=== PATIENT | female | born 1950 | race Caucasian/White ===

== ENCOUNTER → 2016-04-25 | Outpatient (CLI) | payer OTHER ==
[~2016-04-25] MED LIST: ARMO250T5 PO; ATOR-22 PO; ATV1 PO; CALC-51 PO; CALCCHW57 PO; CHOL1TAB46 PO; CLB/200 PO; CYAN500T13 PO; DARI15TA PO; DLD2 PO; GABA-113 PO; IPRA0.06 NAE; LEVO25TA5 PO; LOSA100T2 PO; MULTTAB58 PO; OMEP40CA PO; OMEP40CA41 PO; POLY335019 PO; RIZA1TAB7 PO; RXC5 PO; TRAM-10 PO; VERA1TAB53 PO; ZOLP10TA PO
--- NOTE | 2016-04-25 11:51 | DIAGNOSTIC IMAGING REPORT ---
FLEXION AND EXTENSION LATERAL RADIOGRAPHS OF THE LUMBAR SPINE CLINICAL HISTORY: Lumbago. COMPARISON: Lumbar spine MRI April 01, 2016. FINDINGS: Grade II anterolisthesis of L4 and L5 is noted. There is 9 mm of anterolisthesis with extension and 11 mm of anterolisthesis with flexion. Moderate disc space narrowing is noted at this level. There is anterolisthesis of L3 on L4 which does not change. There is slight retrolisthesis of L2 on L3 which does not change. IMPRESSION: Grade II anterolisthesis of L4 and L5 which slightly increases with flexion which suggests mild instability. Electronically signed by: Mehran Quintero M.D. 04/25/2016 11:49 AM Dictated Date/Time: 04/25/2016 11:46 AM
== END | disposition home or self-care (01) ==
LOC: C.RADBC 10:21
PROVIDERS: ATTEND Anesthesiology
DX: M54.5 Low back pain (principal); M43.16 Spondylolisthesis, lumbar region

== ENCOUNTER 2016-07-01 11:30 | Inpatient (IN) | payer OTHER ==
--- NOTE | 2016-06-05 13:33 | PAT Medication Instructions ---
Service Date Jun 05, 2016. Current Home Medication List Armodafinil (Nuvigil), 0.5 TAB PO QAM PRN for PRN Atorvastatin (Lipitor), 20 MG PO QPM Celecoxib (CeleBREX), 200 MG PO QAM Cholecalciferol (Vitamin D3), 1 TAB PO NOON Cyanocobalamin (Vitamin B12 500MCG), 2,500 MCG PO NOON Darifenacin (Enablex), 15 MG PO DAILY PRN for URINARY FREQUENCY Gabapentin (Neurontin), 300 MG PO TID Ipratropium Elsah (Nasal) (Ipratropium Elsah), 2-3 SPRAY GELACIO DIRECTED PRN for PRN Levothyroxine Sodium (Levothyroxine Sodium), 1 TAB PO QAM Losartan Potassium & Hydrochlo (Hyzaar), 1 TAB PO QPM Multiple Vitamin (Multivitamin), 1 TAB PO NOON Omeprazole (Prilosec), 40 MG PO QAM Polyethylene Glycol 3350 (Miralax), 17 GM PO PRN Rizatriptan Benzoate (Rizatriptan Benzoate), 10 MG PO UD PRN for RN Tramadol (Ultram), 50-100 MG PO Q6H PRN for RN Verapamil Hcl (Verapamil Hcl Er), 1 TAB PO BID Zolpidem Tartrate (Ambien), 10 MG PO HS PRN for Sleep [Calcium], 1,200 UNITS PO NOON Medication Instructions For Your Scheduled Surgery Rizatriptan Benzoate (Rizatriptan Benzoate), 10 MG PO UD PRN for RN (only takes with migraines- rarely) Celecoxib (CeleBREX), 200 MG PO QAM (hold 7-10 days prior to surgery per surgeon instructions) - Hold the following medications evening prior to surgery: Losartan Potassium & Hydrochlo (Hyzaar), 1 TAB PO QPM - Hold the following medications the morning of surgery: Calcium 1,200 UNITS PO NOON Polyethylene Glycol 3350 (Miralax), 17 GM PO PRN Multiple Vitamin (Multivitamin), 1 TAB PO NOON Darifenacin (Enablex), 15 MG PO DAILY PRN for URINARY FREQUENCY Cholecalciferol (Vitamin D3), 1 TAB PO NOON Cyanocobalamin (Vitamin B12 500MCG), 2,500 MCG PO NOON Armodafinil (Nuvigil), 0.5 TAB PO QAM PRN for PRN - Take the following medications the morning of surgery with a sip of water: Tramadol (Ultram), 50-100 MG PO Q6H PRN for RN (can take up to four hours prior to surgery if needed) Verapamil Hcl (Verapamil Hcl Er), 1 TAB PO BID Omeprazole (Prilosec), 40 MG PO QAM Levothyroxine Sodium (Levothyroxine Sodium), 1 TAB PO QAM Ipratropium Elsah (Nasal) (Ipratropium Elsah), 2-3 SPRAY GELACIO DIRECTED PRN for PRN (if needed) Gabapentin (Neurontin), 300 MG PO TID (if needed) - Take the following medications as scheduled the night before surgery: Zolpidem Tartrate (Ambien), 10 MG PO HS PRN for Sleep Tramadol (Ultram), 50-100 MG PO Q6H PRN for RN Verapamil Hcl (Verapamil Hcl Er), 1 TAB PO BID Ipratropium Elsah (Nasal) (Ipratropium Elsah), 2-3 SPRAY GELACIO DIRECTED PRN for PRN Gabapentin (Neurontin), 300 MG PO TID Atorvastatin (Lipitor), 20 MG PO QPM If you have any questions please call us at [phone] or [phone] ( [place]) or [phone]
--- NOTE | 2016-06-05 14:04 | DIAGNOSTIC IMAGING REPORT ---
CHEST PREADMISSION(PA/LAT) CLINICAL HISTORY: PAT preoperative evaluation COMPARISON STUDY: No previous studies for comparison. FINDINGS: The bones soft tissues and hemidiaphragms are normal. The cardiomediastinal silhouette is normal. The lungs are clear. The pulmonary vasculature is normal. IMPRESSION: Negative chest. Electronically signed by: Hari Li M.D. 06/05/2016 2:03 PM Dictated Date/Time: 06/05/2016 2:03 PM
[2016-06-05 14:17] LABS: BASO % 0.3 %; BASO ABS # 0.02 K/uL (0-0.2); COMPLETE YES; EOS % 3.5 %; HEMATOCRIT 41.5 % (37-47); IG% 0.2 %; LYMPH % 39.1 %; LYMPH ABS # 2.32 K/uL (1.2-3.4); MEAN CELL VOLUME 88.7 fL (80-100); MEAN CORPUSCULAR HEMOGLOBIN 30.3 pg (25-34); MEAN CORPUSCULAR HGB CONC 34.2 g/dl (32-36); MEAN PLATELET VOLUME 10.6 fL (7.4-10.4); MONO % 7.3 %; NEUT % 49.6 %; PLATELET COUNT 240 K/uL (130-400); RED BLOOD COUNT 4.68 M/uL (4.2-5.4); WHITE BLOOD COUNT 5.93 K/uL (4.8-10.8)
[2016-06-05 14:21] LABS: URINE APPEARANCE CLEAR (CLEAR); URINE BILIRUBIN NEG (NEG); URINE COLOR DK YELLOW; URINE NITRITE NEG (NEG); URINE PH 5.5 (4.5-7.5); URINE SPECIFIC GRAVITY 1.029 (1.000-1.030); UROBILINOGEN NEG (NEG)
[2016-06-05 14:23] LABS: MANUAL MICROSCOPIC REQUIRED? NO; REVIEW REQ? NO
[2016-06-05 14:46] LABS: BUN/CREATININE RATIO 23.8 (10-20); CALCIUM 8.7 mg/dl (8.5-10.1); CREATININE 0.78 mg/dl (0.60-1.20); POTASSIUM 4.1 mmol/L (3.5-5.1)
--- NOTE | 2016-06-27 09:06 | HISTORY & PHYSICAL EXAMINATION ---
DATE OF ADMISSION: 07/01/2016 HISTORY OF PRESENT ILLNESS: The patient presents to our office with complaint of back and right leg pain. It has been ongoing for 6+ months. It is worsening. She was evaluated by pain management but they felt she was not a candidate for injections due to the degree of her stenosis. She has trialed physical therapy for 4 months without any technician terminal and repeater relief. She feels her right leg is weaker than the left. He denies paresthesias or numbness. Denies bowel or bladder changes. PAST MEDICAL HISTORY: Significant for arthritis, ovarian and cervical cancer in 1988, GERD, mild heart murmur, hiatal hernia, hypertension, high cholesterol, migraines, insomnia, hypothyroidism, spinal stenosis, shortness of breath. PAST SURGICAL HISTORY: Significant for total hysterectomy for ovarian cancer in 1988, endoscopic balloon dilation for Schatzki's rings in December 2015. ALLERGIES: INCLUDE COMPAZINE. MEDICATIONS CURRENTLY: Include levothyroxine 25 mcg a day, omeprazole 40 mg a day, verapamil HCL ER 180 mg twice a day, Celebrex 200 mg a day, atorvastatin 20 mg a day, losartan/hydrochlorothiazide 50/12.5 one daily, armodafinil 250 mg half a tablet as needed, gabapentin 300 mg t.i.d., Ambien 5 mg as needed, rizatriptan benzoate 10 mg as needed, tramadol as needed, vitamin D, calcium, vitamin B12 and multivitamin. FAMILY HISTORY: Significant for arthritis, cancer, hypertension, and high cholesterol. SOCIAL HISTORY: The patient is . He drinks wine or mixed drink twice a month. Alcohol use he denies. Drug use he denies. REVIEW OF SYSTEMS: Significant for difficulty walking, dizziness, poor coordination, muscle weakness, constipation, leg swelling, abdominal pain, frequent urination. PHYSICAL EXAMINATION: VITAL SIGNS: The patient is 5 foot 3, 172 pounds. HEAD, EYES, EARS, NOSE, AND THROAT: Speech appropriate. CARDIOPULMONARY: No gross abnormalities. ABDOMEN: Soft and nondistended. GENITOURINARY: Deferred. NEUROLOGIC: Cranial nerves II-XII grossly intact. MUSCULOSKELETAL: She moves slowly around the room. She has positive tension sign on the right. Negative on the left. Strength is intact bilateral lower extremities. No evidence of ankle clonus and equivocal Babinski. ASSESSMENT: Grade 1 spondylolisthesis of L4-L5, severe spinal stenosis L4-L5. PLAN: At this point in time, we have reviewed surgical intervention which would require lumbar decompression with instrumented fusion of L4-L5. Risks, benefits, pros, cons, and alternatives were outlined in detail. She would like to proceed with the above-mentioned surgical planning.
[~2016-07-01] VITALS: Ht 160 cm; Wt 79.2 kg
[2016-07-01] VITALS (7 sets, daily range): BP systolic 129–148; BP diastolic 74–90; PULSE 67–91; TEMP 35.5–36.6; O2SAT 95–99; Ht 160 cm; Wt 79.2 kg
--- NOTE | 2016-07-01 07:22 | History & Physical Bridge Note ---
H&P Re-Evaluation Bridge Note: I have examined the patient, reviewed the History & Physical and in the interval since the performance of the History & Physical I have noted the following changes of clinical significance: No changes noted
[~2016-07-01 11:30] MED LIST changes: -ARMO250T5 PO; -ATOR-22 PO; +ATROPINE SULFATE 0.1 MG/ML 5ML SYR IV PRN; -ATV1 PO; -CALCCHW57 PO; -CHOL1TAB46 PO; -CYAN500T13 PO; -DARI15TA PO; -DLD2 PO; +EpHEDrine SULFATE INJ 50 MG/ML AMP IV PRN; +FENTANYL CITRATE INJ 50 MCG/1 ML 2 ML VIAL IV PRN; -GABA-113 PO; +HYDROmorphone INJ 1 MG/ML SYR IV PRN; -IPRA0.06 NAE; +LACTATED RINGER'S 1000ML 1,000 ML IV SCH; -LEVO25TA5 PO; -LOSA100T2 PO; -MULTTAB58 PO; -OMEP40CA41 PO; +ONDANSETRON INJ 2 MG/ML 2 ML VIAL IV PRN; -POLY335019 PO; -RIZA1TAB7 PO; -RXC5 PO; -TRAM-10 PO; -VERA1TAB53 PO; -ZOLP10TA PO
[2016-07-01] MEDS ORDERED: CEFAZOLIN IV 2,000 MG/60 ML D5W IV ONE (13:46)
[2016-07-01] MEDS ORDERED: GLYCOPYRROLATE INJ 0.2 MG/ML VIAL ONE ×2 (13:51→15:43)
[2016-07-01] MEDS ORDERED: DEXAMETHASONE SOD INJ 4 MG/ML VIAL ONE (13:51)
[2016-07-01] MEDS ORDERED: ROCURONIUM BROMIDE 10 MG/ML 5 ML VIAL ONE ×2 (13:51→15:18)
[2016-07-01] MEDS ORDERED: ONDANSETRON INJ 2 MG/ML 2 ML VIAL ONE (13:51)
[2016-07-01] MEDS ORDERED: NEOSTIGMINE METHYLSULFATE 1 MG/ML 10ML VIAL ONE (13:51)
[2016-07-01] MEDS ORDERED: PROPOFOL IV EMULSION 10 MG/ML 20 ML VIAL IV ONE ×2 (13:51→15:18)
[2016-07-01] MEDS ORDERED: LIDOCAINE HCL 2% 2 ML VIAL (20MG/ML) ONE (13:51)
[2016-07-01] MEDS ORDERED: FENTANYL CITRATE INJ 50 MCG/1 ML 2 ML VIAL ONE ×2 (13:51→16:09)
[2016-07-01] MEDS ORDERED: MIDAZOLAM HCL 1 MG/ML 2ML VIAL ONE (13:51)
[2016-07-01] MEDS ORDERED: SODIUM CHLORIDE 0.9% PF 50 ML VIAL ONE (13:57)
[2016-07-01] MEDS ORDERED: BUPIVACAINE/EPINEPHRINE 0.5% MPF 1:200,000 30 ML VIAL ONE (13:57)
[2016-07-01] MEDS ORDERED: BACITRACIN 50000 UNIT VIAL ONE (13:58)
[2016-07-01] MEDS ORDERED: PHENYLEPHRINE HCL INJ 10 MG/ML VIAL ONE (15:03)
[2016-07-01] MEDS ORDERED: FLOSEAL HEMOSTATIC MATRIX 10ML TOP ONE (15:47)
[2016-07-01] MEDS ORDERED: SODIUM CHLORIDE 0.9% 1000ML 1,000 ML IV SCH (15:48)
--- NOTE | 2016-07-01 15:48 | [facility] Post Operative Brief Note ---
Immediate Operative Summary Operative Date Jul 01, 2016. Pre-Operative Diagnosis Grade 1 spondylolisthesis of L4-L5, severe spinal stenosis L4-L5 Post-Operative Diagnosis same as preop Procedure(s) Performed L4-L5 Decompression, posterior instrumentation, posterolaterl fusion, application of interbody cage, use of bone morphogenetic protein and Anu allograft Surgeon Dr. Wright Accounting Clerk Surgeon(s) Dixie Carson PA-C Estimated Blood Loss 100 Findings stenosis/spondy Specimens none
[2016-07-01] MEDS ORDERED: KETOROLAC TROMETHAMINE 30 MG/ML VIAL ONE (15:54)
--- NOTE | 2016-07-01 15:58 | DIAGNOSTIC IMAGING REPORT ---
LUMBAR SPINE, INTRAOPERATIVE FLUOROSCOPY HISTORY: Lumbar spine decompression and fusion. FLUOROSCOPY TIME: 9 seconds. FINDINGS: Intraoperative fluoroscopy was provided for the lumbar spine. 2 fluoroscopic spot images were obtained. Posterior decompression fusion from L3 through L5 with pedicle screws and rods. The hardware appears intact. IMPRESSION: Fluoroscopy provided for a L3-L5 posterior decompression and fusion. Electronically signed by: Dejon Lobo M.D. 07/01/2016 3:57 PM Dictated Date/Time: 07/01/2016 3:56 PM
[2016-07-01] MEDS ORDERED: FENTANYL CITRATE INJ 50 MCG/1 ML 2 ML VIAL IV PRN (16:00)
[2016-07-01] MEDS ORDERED: SOD PHOSPHATE/SOD BIPHOSPHATE ENEMA 132 ML BTL PR PRN (16:00)
[2016-07-01] MEDS ORDERED: ACETAMINOPHEN IV 100 ML IV PRN (16:00)
[2016-07-01] MEDS ORDERED: METOCLOPRAMIDE HCL INJ 5 MG/ML 2 ML VIAL IV PRN (16:00)
[2016-07-01] MEDS ORDERED: ALUMINUM/MAGNESIUM SUSP 30 ML UDC PO PRN (16:00)
[2016-07-01] MEDS ORDERED: FAMOTIDINE 20 MG TAB PO PRN (16:00)
[2016-07-01] MEDS ORDERED: BISACODYL 10 MG SUPP PR PRN (16:00)
[2016-07-01] MEDS ORDERED: LORAZEPAM INJ 0.5 MG in SYRINGE 0.75 ML IV PRN (16:00)
[2016-07-01] MEDS ORDERED: DO NOT ADMINISTER PNEUMOCOCCAL VACCINE PRN ×2 (16:00)
[2016-07-01] MEDS ORDERED: PROMETHAZINE HCL INJ 6.25 MG in SODIUM CHLORIDE 0.9% 50ML 50 ML IV PRN (16:00)
[2016-07-01] MEDS ORDERED: LORAZEPAM 0.5 MG TAB PO PRN (16:00)
[2016-07-01] MEDS ORDERED: hydrOXYzine HCL 25 MG TAB PO PRN (16:00)
[2016-07-01] MEDS ORDERED: ONDANSETRON INJ 2 MG/ML 2 ML VIAL IV PRN ×2 (16:00)
[2016-07-01] MEDS ORDERED: NALOXONE HCL 0.4 MG/1 ML VIAL/CARP IV PRN ×2 (16:00)
[2016-07-01] MEDS ORDERED: ATROPINE SULFATE 0.1 MG/ML 5ML SYR IV PRN (16:00)
[2016-07-01] MEDS ORDERED: EpHEDrine SULFATE INJ 50 MG/ML AMP IV PRN (16:00)
[2016-07-01] MEDS ORDERED: MAGNESIUM HYDROXIDE SUSP 30 ML UDC PO PRN (16:00)
[2016-07-01] MEDS ORDERED: DO NOT ADMINISTER FLU VACCINE PRN ×3 (16:00)
[2016-07-01] MEDS ORDERED: HYDROmorphone INJ 1 MG/ML SYR IV PRN (16:00)
[2016-07-01] MEDS ORDERED: RIZATRIPTAN BENZOATE 10 MG TAB PO PRN (16:00)
[2016-07-01] MEDS ORDERED: ACETAMINOPHEN 500 MG TAB PO PRN (16:00)
[2016-07-01] MEDS ORDERED: HYDROmorphone HCL 0.5MG/ML 50 ML CASSETTE ONE (16:11)
--- NOTE | 2016-07-01 16:16 | OPERATIVE REPORT ---
DATE OF OPERATION: 07/01/2016 PREOPERATIVE DIAGNOSES: Spinal stenosis and spondylolisthesis. POSTOPERATIVE DIAGNOSES: Same. PROCEDURES PERFORMED: 1. Lumbar decompression, medial facetectomy, and foraminotomy L3-L4 and L4-L5. 2. Posterior spinal fusion, L3-L4 and L4-L5. 3. Placement of posterior segmental instrumentation using Orthos rods and screws, L3-L4 and L4-L5. 4. Interbody fusion, L4-L5. 5. Placement of PEEK cage 12 x 22 mm at L4-L5. 6. Placement of locally harvested morcellized autograft in the posterior gutters. 7. Placement of Infuse collagen sponge combined with Mastergraft in the posterior lateral gutters and Anu bone grafting in the interbody space. SURGEON: Dr. Troy Wright. ORGAN PIPE FINISHER: Dixie Carson PA-C. Due to the complex nature of the procedure, the entire surgery was performed with the assistant hairstylist of Dixie Carson PA-C. The animal assistant, under direct supervision, was involved in the actual performance of all aspects of the surgical procedure including hemostasis, tissue retraction and incision, instrument management, patient positioning, and wound closure. ANESTHESIA: General. DISPOSITION: The patient awakened and taken to PACU in stable condition. HISTORY OF PATIENT'S PROBLEMS: This is a 66-year-old female that presents with the above-mentioned diagnoses. After failing an extensive course of nonoperative care, she elected to undergo the above-mentioned procedure. Risks, benefits, pros, cons, and alternatives were outlined in detail preoperatively. DESCRIPTION OF PROCEDURE: The patient was met with preoperatively, the case discussed and all questions were addressed. At that point, the patient was taken back to operative suite and after undergoing successful general intubation by the department of anesthesia, she was placed in prone position on the Vivek table atop Micheal frame. All bony prominences were well padded and the eyes were inspected to ensure there was no external pressure placed upon them. At this point, lumbar spine was prepped and draped in normal sterile fashion. Sharp dissection with the assistance of Bovie cautery was performed down to and exposing the lamina and transverse processes of L3, L4, and L5 bilaterally. From a caudal to cephalad fashion, complete laminectomy of L4 and L3 performed addressing severe lateral recess foraminal disease. Pedicle screws were then placed in L3, L4, and L5 bilaterally with the assistance of fluoroscopy and the appropriately sized tiffanie provisionally placed. Through a transforaminal approach on the right, a complete diskectomy of L4-L5 was performed. Endplates were curetted to subcortical bleeding bone and a 12 x 22 mm PEEK cage filled with Anu bone grafting tapped into position. The rods were then compressed, locked into final position bilaterally and transverse processes of L3, L4, and L5 burred to subcortical bleeding bone. Infuse collagen sponge combined with Mastergraft and locally harvested morselized autograft was placed in the posterior gutters. A 7 flat GISEL drain inserted and also a crosslink locked into position. The incision was closed with 1-0 Vicryl in the fascia, 2-0 Vicryl subcutaneously, and 4-0 Monocryl for final skin closure. Steri-Strips and sterile dressing placed. The patient was awakened and taken to PACU in stable condition. I attest to the content of the Intraoperative Record and any orders documented therein. Any exceptio ns are noted below.
[2016-07-01] MEDS: HYDROmorphone HCL 0.5MG/ML 50 ML CASSETTE IV PRN ×2 (16:52→18:58)
[2016-07-01] MEDS: LACTATED RINGER'S 1000ML 1,000 ML IV SCH ×2 (17:14→22:24)
--- NOTE | 2016-07-01 17:55 | Anesthesiology Progress Note ---
Anesthesia Post Op Note Date & Time Jul 01, 2016 at 17:54 Vital Signs Pain Intensity: 8.0 Vital Signs Past 12 Hours Date Time Temp Pulse Resp B/P Pulse Ox O2 Delivery O2 Flow Rate FiO2 07/01/16 17:20 35.5 67 16 143/81 99 Nasal Cannula 2.0 07/01/16 16:50 97 Nasal Cannula 2.0 07/01/16 16:50 97 Nasal Cannula 2.0 07/01/16 16:50 36.4 91 18 138/74 97 Nasal Cannula 2.0 07/01/16 16:45 36.5 88 14 111/78 98 Nasal Cannula 3 07/01/16 16:35 82 14 115/62 100 Nasal Cannula 3 07/01/16 16:25 83 14 127/65 100 Mask 5 07/01/16 16:15 95 18 158/75 100 Mask 10 07/01/16 16:10 36.4 90 18 126/68 100 Mask 10 07/01/16 11:54 36.5 86 18 143/80 95 Room Air Notes Mental Status: alert / awake / arousable, participated in evaluation Pt Amnestic to Procedure: Yes Nausea / Vomiting: adequately controlled Pain: adequately controlled Airway Patency, RR, SpO2: stable & adequate BP & HR: stable & adequate Hydration State: stable & adequate Anesthetic Complications: no major complications apparent
[2016-07-01] MEDS: CEFAZOLIN IV 2,000 MG in DEXTROSE 5% 50ML 50 ML IV SCH (20:36)
[2016-07-01] MEDS: DEXAMETHASONE INJ 6 MG in SYRINGE 0 ML IV SCH (20:36)
[2016-07-01] MEDS: PROMETHAZINE HCL INJ 12.5 MG in SODIUM CHLORIDE 0.9% 50ML 50 ML IV PRN ×2 (21:00→21:52)
[2016-07-01] MEDS: ATORVASTATIN 20 MG TAB PO SCH (22:24)
[2016-07-01] MEDS: GABAPENTIN 300 MG CAP PO SCH (22:25)
[2016-07-01] MEDS: LOSARTAN/HCTZ 50-12.5 EA TAB PO SCH (22:25)
[2016-07-01] MEDS: DOCUSATE SODIUM/SENNA 50/8.6MG TAB PO SCH (22:26)
[2016-07-01] MEDS: VERAPAMIL HCL 180 MG TABCR PO SCH (22:26)
[2016-07-02 03:25] VITALS: BP 114/70; PULSE 89; TEMP 36.4; O2SAT 96
[2016-07-02] MEDS: DEXAMETHASONE INJ 6 MG in SYRINGE 0 ML IV SCH ×2 (03:51→12:00)
[2016-07-02] MEDS: CEFAZOLIN IV 2,000 MG in DEXTROSE 5% 50ML 50 ML IV SCH (03:51)
[2016-07-02 05:05] VITALS: O2SAT 98
[2016-07-02] MEDS ORDERED: HYDROmorphone INJ 0.5 MG/0.5 ML SYR IV PRN (06:00)
[2016-07-02] MEDS ORDERED: DC PCA SCH (06:00)
[2016-07-02] MEDS ORDERED: HYDROmorphone INJ 1 MG/ML SYR IV PRN (06:00)
[2016-07-02 06:15] LABS: COMPLETE YES; HEMATOCRIT 38.5 % (37-47); IG% 0.2 %; LYMPH % 11.3 %; LYMPH ABS # 0.96 K/uL (1.2-3.4); MEAN CELL VOLUME 90.2 fL (80-100); MEAN CORPUSCULAR HGB CONC 33.2 g/dl (32-36); MEAN PLATELET VOLUME 10.4 fL (7.4-10.4); MONO % 1.2 %; NEUT % 87.3 %; PLATELET COUNT 210 K/uL (130-400); RED BLOOD COUNT 4.27 M/uL (4.2-5.4); WHITE BLOOD COUNT 8.47 K/uL (4.8-10.8)
[2016-07-02] MEDS: LEVOTHYROXINE 25 MCG TAB PO SCH (06:15)
[2016-07-02] MEDS: LACTATED RINGER'S 1000ML 1,000 ML IV SCH (06:15)
[2016-07-02 06:50] LABS: BUN/CREATININE RATIO 22.1 (10-20); CALCIUM 8.5 mg/dl (8.5-10.1); CREATININE 0.75 mg/dl (0.60-1.20)
[2016-07-02 06:57] VITALS: BP 111/66; PULSE 80; TEMP 36.5; O2SAT 90
[2016-07-02] MEDS: OXYCODONE HCL IR 5 MG TAB (IMMEDIATE RELEASE) PO PRN ×3 (07:35→20:38)
--- NOTE | 2016-07-02 07:49 | Anesthesiology Progress Note ---
Anesthesia Post Op Note Date & Time Jul 02, 2016 at 07:48 Vital Signs Pain Intensity: 7.0 Vital Signs Past 12 Hours Date Time Temp Pulse Resp B/P Pulse Ox O2 Delivery O2 Flow Rate FiO2 07/02/16 06:57 36.5 80 20 111/66 90 Room Air 07/02/16 05:05 98 Room Air 07/02/16 03:25 36.4 89 16 114/70 96 Nasal Cannula 2.0 07/01/16 23:10 36.6 90 16 130/83 99 Nasal Cannula 2.0 07/01/16 19:59 36.6 90 18 148/76 96 Room Air Notes Mental Status: alert / awake / arousable, participated in evaluation Pt Amnestic to Procedure: Yes Nausea / Vomiting: adequately controlled Pain: adequately controlled, see Notes Airway Patency, RR, SpO2: stable & adequate BP & HR: stable & adequate Hydration State: stable & adequate Anesthetic Complications: no major complications apparent just asked for po analgesic, nurse bringing it.
[2016-07-02] MEDS: VERAPAMIL HCL 180 MG TABCR PO SCH ×2 (09:02→20:37)
[2016-07-02] MEDS: PANTOprazole SOD 40 MG TAB PO SCH (09:02)
[2016-07-02] MEDS: GABAPENTIN 300 MG CAP PO SCH ×3 (09:02→20:36)
[2016-07-02] MEDS: TRAMADOL HCL 50 MG TAB PO PRN (09:05)
[2016-07-02] MEDS ORDERED: NURSING VERBAL MED ORDER ONE (11:15)
[2016-07-02 11:59] VITALS: BP 110/70; PULSE 92; TEMP 36.9; O2SAT 94
[2016-07-02] MEDS ORDERED: RXC5 PO (12:36)
--- NOTE | 2016-07-02 12:37 | Discharge Instructions ---
Discharge Instructions Date of Service Jul 02, 2016. Admission Reason for Admission: Lumbar Spinal Stenosis Discharge Discharge Diagnosis / Problem: stenosis Discharge Goals Goal(s): Improve function Activity Recommendations Activity Limitations: per Instructions/Follow-up section . Instructions / Follow-Up Instructions / Follow-Up ACTIVITY RECOMMENDATIONS: SELF CARE INSTRUCTIONS AFTER THORACIC/LUMBAR FUSIONS 1. You may walk to your tolerance. It is good exercise for your legs and back. Expect some back and intermittent leg aches and pains. 2. You may perform "counter-top" level activities (make a sandwich, denise with a project, etc.). 3. No bending or lifting of more than 10 pounds or back twisting of any nature (roll like a log when turning in bed). 4. You may ride in a car for 20-30 minutes at a time. No driving until after your first visit with your doctor. 5. Frequent changes of position and restricting sitting to 30 minutes at a time will help limit the amount of back spasms and stiffness you may experience. 6. You may discontinue the use of ambulatory aids (cane, crutches, etc.) once your strength and confidence allow. 7. You may business job titles the shower and let water strike your incision when you arrive home at least once daily. Do not take a tub bath, sit in a hot tub or go into a swimming pool until after your first recheck in the office. SPECIAL CARE INSTRUCTIONS: VERY IMPORTANT TO READ AND REVIEW A. Your surgical incision has been closed with a cosmetic suture under the skin that will dissolve in about 6 weeks. In 14 days, you can use a pair of clean scissors and cut the suture that is left outside of the skin at the ends of your incision. 1. The small skin tapes can be removed 7 days after surgery if they have not fallen off by that point. 2. You may keep the wound open to air as much as possible to promote healing after post-op day number 5 unless told otherwise by your doctor. 3. If you think the wound looks like it is becoming infected (redness or worsening drainage) and/or you are experiencing fever, chill or worsening back pain and muscle spasms, contact the office so that we may evaluate you as soon as possible. B. Complications are uncommon, but please contact us if you have any signs or symptoms of: 1. wound infection (fever higher than 102.5 degrees F, redness, separation of wound, drainage, or increasing pain from the incision) 2. blood clots in legs (pain, swelling, redness and warmth in legs) 3. urinary tract infection (fever higher than 102.5 degrees F, burning upon urination or increased frequency of urination) 4. nerve problems (inability to walk on your toes or heels, numbness, loss of bowel or bladder control) 5. any other symptoms that concern you C. Please call the office at if you have any concerns or questions about your operation or recovery. D. No smoking! Smoking drastically decreases the chance of a solid fusion. E. Do not take any anti-inflammatory medications (Indocin, Advil, Motrin, Aspirin, Naprosyn, etc.) as these may inhibit the chance of a solid fusion. Tylenol is okay to take for pain. MANAGING PAIN AFTER SPINAL SURGERY 1. Narcotic medication is intended for short-term use and will be provided for surgical pain. Surgical pain usually lasts for a period of 4-6 weeks. Narcotic medication includes Percocet, Vicodin, Darvocet, Tylenol #3 or Lortab. 2. Longer-term pain is more appropriately treated with non-narcotic medication such as Tylenol ES. 3. Muscle spasm is not appropriately treated with narcotics. Muscle relaxers such as Soma, Flexeril or Skelaxin can be used along with Tylenol ES. 4. Remember that we all live with some "aches and pains". This is not unusual or uncommon after an injury or as we get older. a. Back pain is expected and may include muscle spasms for 4 to 6 weeks after surgery. The pain should gradually improve. If the pain worsens for no apparent reason, please contact the office. b. Intermittent leg pain may also be experienced and should not be concerned about unless it worsens for no apparent reason. If so, please contact the office. 5. We will provide appropriate medication within the normal guidelines of their prescribed use. We will also be very cautious and aware of potential abuse and extended duration of patients' medication needs. a. Pain medications are for your comfort and to assist with sleep and rest so that the tissue can heal. They are not provided in order to return to normal activity and should not be used through the day. To do so or worsening pain at night can result from ongoing tissue damage and development of tolerance to the prescribed medicine. 6. Please allow 2-3 days to process refills. Prescriptions will not be mailed but must be picked up at the office. FOLLOW UP VISIT: Keep your scheduled follow-up appointment. Any questions, please call the office at . Current Hospital Diet Patient's current hospital diet: Regular Diet Discharge Diet Recommended Diet: Regular Diet Procedures Procedures Performed: L3-L5 Decompression, posterior instrumentation, posterolateral fusion; L4-L5 application of interbody cage; use of bone morphogenetic protein and Anu allograft Pending Studies Studies pending at discharge: no Laboratory Results Lipid Panel Test 04/04/16 09:17 Range/Units Triglycerides Level 101 0-150 mg/dl Cholesterol Level 186 0-200 mg/dl HDL Cholesterol 89 mg/dl Cholesterol/HDL Ratio 2.1 LDL Cholesterol, Calculated 77 mg/dl Medical Emergencies . Who to Call and When: Medical Emergencies: If at any time you feel your situation is an emergency, please call 911 immediately. . Non-Emergent Contact Non-Emergency issues call your: Primary Care Provider . "Provider Documentation" section prepared by Troy Wright. VTE Core Measure Inpt VTE Proph given/why not?: Juancho Valdez, SCD's
--- NOTE | 2016-07-02 12:46 | PROGRESS NOTE ---
DATE: 07/02/2016 DATE: 07/02/2016. SUBJECTIVE: Postop day 1. Back pain controlled. Leg pain improved. Vital signs stable. T-max 36.9. GISEL drained 70 mL. Hematocrit this a.m. is 38.5. OBJECTIVE: On exam, patient is in chair at bedside. Has good strength to testing, appears comfortable. ASSESSMENT: Status post lumbar decompression and fusion. PLAN: At this time, will continue physical therapy, advance her bowel regimen and anticipate home .
[2016-07-02 15:17] VITALS: BP 119/71; PULSE 84; TEMP 36.8; O2SAT 93
[2016-07-02] MEDS: ATORVASTATIN 20 MG TAB PO SCH (20:36)
[2016-07-02] MEDS: DOCUSATE SODIUM/SENNA 50/8.6MG TAB PO SCH (20:36)
[2016-07-02] MEDS: LOSARTAN/HCTZ 50-12.5 EA TAB PO SCH (20:36)
[2016-07-02] MEDS: ZOLPIDEM TARTRATE 10 MG TAB PO PRN (22:51)
[2016-07-02 23:05] VITALS: BP 132/79; PULSE 86; TEMP 36.8; O2SAT 94
[2016-07-03] MEDS: LEVOTHYROXINE 25 MCG TAB PO SCH (05:47)
[2016-07-03] MEDS: POLYETHYLENE (MIRALAX) 17 GM PACK PO SCH ×3 (05:48→18:00)
[2016-07-03] MEDS: OXYCODONE HCL IR 5 MG TAB (IMMEDIATE RELEASE) PO PRN ×3 (05:48→19:22)
[2016-07-03 07:09] VITALS: BP 116/73; PULSE 80; TEMP 36.8; O2SAT 95
[2016-07-03] MEDS: PANTOprazole SOD 40 MG TAB PO SCH (09:26)
[2016-07-03] MEDS: GABAPENTIN 300 MG CAP PO SCH ×3 (09:26→21:44)
[2016-07-03] MEDS: VERAPAMIL HCL 180 MG TABCR PO SCH ×2 (09:26→21:42)
--- NOTE | 2016-07-03 12:49 | PROGRESS NOTE ---
DATE: 07/03/2016 Postop day #2. Back pain controlled. Leg pain improved. Vital signs stable. T-max 36.8. GISEL drained 35 mL today. No bowel movement as of yet. Hematocrit stable. OBJECTIVE: The patient is in chair at bedside. Has good strength to testing, appears comfortable. ASSESSMENT: Status post lumbar decompression and fusion. PLAN: At this time, will maintain GISEL drain today. Continue with her bowel regimen. Anticipate home tomorrow.
[2016-07-03 15:14] VITALS: BP 109/69; PULSE 81; TEMP 36.6; O2SAT 96
[2016-07-03] MEDS: TRAMADOL HCL 50 MG TAB PO PRN ×2 (15:28→21:54)
[2016-07-03] MEDS: DOCUSATE SODIUM/SENNA 50/8.6MG TAB PO SCH (21:00)
[2016-07-03 21:43] VITALS: BP 136/87; PULSE 90
[2016-07-03] MEDS: LOSARTAN/HCTZ 50-12.5 EA TAB PO SCH (21:43)
[2016-07-03] MEDS: ATORVASTATIN 20 MG TAB PO SCH (21:44)
[2016-07-03 22:50] VITALS: BP 145/83; PULSE 84; TEMP 36.6; O2SAT 97
[2016-07-03] MEDS ORDERED: NURSING DECISION MEDICATION ORDER SCH (23:45)
[2016-07-04] MEDS: ZOLPIDEM TARTRATE 10 MG TAB PO PRN (00:25)
[2016-07-04] MEDS: OXYCODONE HCL IR 5 MG TAB (IMMEDIATE RELEASE) PO PRN ×3 (00:26→09:39)
[2016-07-04] MEDS: LEVOTHYROXINE 25 MCG TAB PO SCH (05:39)
[2016-07-04 07:20] VITALS: BP 112/67; PULSE 89; TEMP 37; O2SAT 94
[2016-07-04] MEDS: VERAPAMIL HCL 180 MG TABCR PO SCH (08:41)
[2016-07-04] MEDS: GABAPENTIN 300 MG CAP PO SCH (08:41)
[2016-07-04] MEDS: PANTOprazole SOD 40 MG TAB PO SCH (08:42)
[2016-07-04] MEDS: TRAMADOL HCL 50 MG TAB PO PRN (08:45)
[2016-07-04 09:55] VITALS: BP 112/67; PULSE 89; TEMP 37; O2SAT 94
--- NOTE | 2016-07-04 13:46 | DISCHARGE SUMMARY ---
PRINCIPAL DIAGNOSIS: Spinal stenosis. HOSPITAL COURSE: On July 01, patient underwent lumbar decompression and fusion, tolerated this well and was taken to the orthopedic floor postoperatively. Postop day #1, she was up and ambulatory, progressed to postop day #2. On postop day #3, GISEL drain decreased appropriately, pain controlled. Subsequently discharged home. Discharge orders and instructions found on the chart for further review.
[2016-07-05] MEDS ORDERED: ARMO250T5 PO (09:27)
[2016-07-05] MEDS ORDERED: LEVO25TA5 PO (09:27)
[2016-07-05] MEDS ORDERED: DARI15TA PO (09:27)
[2016-07-05] MEDS ORDERED: ATOR-22 PO (09:27)
[2016-07-05] MEDS ORDERED: MULTTAB58 PO (09:27)
[2016-07-05] MEDS ORDERED: IPRA0.06 NAE (09:27)
[2016-07-05] MEDS ORDERED: LOSA100T2 PO (09:27)
[2016-07-05] MEDS ORDERED: CHOL1TAB46 PO (09:28)
[2016-07-05] MEDS ORDERED: VERA1TAB53 PO (09:28)
[2016-07-05] MEDS ORDERED: ZOLP10TA PO (09:28)
[2016-07-05] MEDS ORDERED: CYAN500T13 PO (12:47)
[2016-07-05] MEDS ORDERED: TRAM-10 PO (12:47)
[2016-07-05] MEDS ORDERED: GABA-113 PO (12:47)
[2016-07-05] MEDS ORDERED: RIZA1TAB7 PO (12:47)
[2016-07-05] MEDS ORDERED: POLY335019 PO (13:06)
[2016-07-05] MEDS ORDERED: CALCCHW57 PO (22:39)
[2016-07-05] MEDS ORDERED: OMEP40CA41 PO (22:39)
== END 2016-07-04 11:53 | disposition home health service (06) | DRG 460 ==
LOC: ENRESERVDT → ENRESERVTM → C.ACU 11:30 → C.3E 11:50
PROVIDERS: ADMIT Orthopaedic Surgery Orthopaedic Surgery of the Spine; ATTEND Orthopaedic Surgery Orthopaedic Surgery of the Spine
PROC: 0SG1071 Fusion of 2 or more Lumbar Vertebral Joints with Autologous Tissue Substitute, Posterior Approach, Posterior Column, Open Approach (ICD-10-PCS; principal; 2016-07-01 13:15)
PROC: 3E0V0GB Introduction of Recombinant Bone Morphogenetic Protein into Bones, Open Approach (ICD-10-PCS; principal; 2016-07-01 13:15)
PROC: 0ST20ZZ Resection of Lumbar Vertebral Disc, Open Approach (ICD-10-PCS; principal; 2016-07-01 13:15)
PROC: 0SG00AJ Fusion of Lumbar Vertebral Joint with Interbody Fusion Device, Posterior Approach, Anterior Column, Open Approach (ICD-10-PCS; principal; 2016-07-01 13:15)
DX: M48.06 Spinal stenosis, lumbar region (principal); K21.9 Gastro-esophageal reflux disease without esophagitis; E78.00 Pure hypercholesterolemia, unspecified; I10 Essential (primary) hypertension; E03.9 Hypothyroidism, unspecified; M43.16 Spondylolisthesis, lumbar region

== ENCOUNTER 2016-07-05 21:27 | Observation (INO) | payer OTHER ==
[~2016-07-05] VITALS: Ht 160 cm; Wt 79.2 kg
[~2016-07-05 21:27] MED LIST changes: +ARMO250T5 PO; +ATOR-22 PO; -ATROPINE SULFATE 0.1 MG/ML 5ML SYR IV PRN; +CHOL1TAB46 PO; -CLB/200 PO; +CYAN500T13 PO; +DARI15TA PO; -EpHEDrine SULFATE INJ 50 MG/ML AMP IV PRN; -FENTANYL CITRATE INJ 50 MCG/1 ML 2 ML VIAL IV PRN; +GABA-113 PO; -HYDROmorphone INJ 1 MG/ML SYR IV PRN; +IPRA0.06 NAE; -LACTATED RINGER'S 1000ML 1,000 ML IV SCH; +LEVO25TA5 PO; +LOSA100T2 PO; +MULTTAB58 PO; -ONDANSETRON INJ 2 MG/ML 2 ML VIAL IV PRN; +POLY335019 PO; +RIZA1TAB7 PO; +RXC5 PO; +TRAM-10 PO; +VERA1TAB53 PO; +ZOLP10TA PO
[2016-07-05] MEDS ORDERED: CALCCHW57 PO (22:39)
[2016-07-05] MEDS ORDERED: OMEP40CA41 PO (22:39)
[2016-07-05] MEDS ORDERED: ONDANSETRON 8 MG/54 ML D5W IV STA (22:59)
[2016-07-05] MEDS ORDERED: HYDROmorphone INJ 1 MG/ML SYR IV PRN (23:00)
[2016-07-05 23:23] LABS: BASO % 0.1 %; BASO ABS # 0.01 K/uL (0-0.2); COMPLETE YES; EOS % 0.1 %; HEMATOCRIT 33.7 % (37-47); IG% 0.3 %; LYMPH % 12.3 %; LYMPH ABS # 1.77 K/uL (1.2-3.4); MEAN CELL VOLUME 90.8 fL (80-100); MEAN CORPUSCULAR HEMOGLOBIN 30.7 pg (25-34); MEAN CORPUSCULAR HGB CONC 33.8 g/dl (32-36); NEUT % 77.2 %; PLATELET COUNT 229 K/uL (130-400); RED BLOOD COUNT 3.71 M/uL (4.2-5.4); WHITE BLOOD COUNT 14.36 K/uL (4.8-10.8)
[2016-07-05 23:40] LABS: CALCIUM 8.5 mg/dl (8.5-10.1); CREATININE 0.87 mg/dl (0.60-1.20)
[2016-07-06 00:21] LABS: URINE APPEARANCE CLEAR (CLEAR); URINE BILIRUBIN NEG (NEG); URINE COLOR YELLOW; URINE NITRITE NEG (NEG); URINE SPECIFIC GRAVITY 1.014 (1.000-1.030); UROBILINOGEN NEG (NEG)
[2016-07-06 00:22] LABS: MANUAL MICROSCOPIC REQUIRED? NO; REVIEW REQ? NO
[2016-07-06] MEDS ORDERED: SODIUM CHLORIDE 0.9% 1000ML 1,000 ML IV STA ×2 (00:41)
[2016-07-06] MEDS ORDERED: KETOROLAC TROMETHAMINE 30 MG/ML VIAL IV STA (00:41)
[2016-07-06] MEDS ORDERED: SODIUM CHLORIDE 0.9% 1000ML 1,000 ML IV SCH (01:00)
[2016-07-06] MEDS ORDERED: HYDROmorphone INJ 1 MG/ML SYR IV PRN (01:00)
[2016-07-06] MEDS ORDERED: OXYCODONE HCL IR 5 MG TAB (IMMEDIATE RELEASE) PO PRN (01:00)
[2016-07-06] MEDS ORDERED: ONDANSETRON INJ 2 MG/ML 2 ML VIAL IV PRN (01:00)
[2016-07-06] MEDS ORDERED: NURSING VERBAL MED ORDER ONE ×3 (01:15→22:15)
[2016-07-06 02:00] VITALS: BP 98/57; PULSE 86; TEMP 36.8; O2SAT 97; Ht 160 cm; Wt 79.2 kg
[2016-07-06 02:15] VITALS: BP 98/57; PULSE 86; TEMP 36.8; O2SAT 93
[2016-07-06 02:22] VITALS: O2SAT 96
[2016-07-06] MEDS ORDERED: LORAZEPAM INJ 1 MG in SYRINGE 0.5 ML IV PRN (02:45)
--- NOTE | 2016-07-06 03:00 | EMERGENCY ROOM VISIT NOTE ---
History First contact with patient: 22:40 Chief Complaint: BACK PAIN Stated Complaint: BACK & LEFT LEG PAIN - CANT URINATE History of Present Illness The patient is a 66 year old female who presents to the Emergency Room with complaints of left leg pain and back pain. She had lumbar fusion, 07/[address] Wright and was discharged on the . The pain is a 9/10 The patient also notes the following associated symptoms, nausea, urinary retention, left leg numbness. This started today and is worsening. The patient has found no relieving factors. Pt denies LOC, headache, fevers, chills, diaphoresis, visual changes, neck pain, chest pain, breathing difficulties, vomiting, abdominal pain, melena, hematochezia, weakness, lymphadenopathy, rash, or other complaints. Review of Systems See HPI for pertinent positives and negatives. A total of ten systems were reviewed and were otherwise negative. Past Medical/Surgical History Medical Problems: (1) Lumbar stenosis with neurogenic claudication Social History Smoking Status: Never Smoker Current/Historical Medications Scheduled Atorvastatin (Lipitor), 20 MG PO QPM Calcium Carbonate-Vitamin D W/ (Calcium 1200), 1,200 MG PO DAILY Cholecalciferol (Vitamin D3), 1 TAB PO NOON Cyanocobalamin (Vitamin B12 500MCG), 2,500 MCG PO NOON Gabapentin (Neurontin), 300 MG PO TID Levothyroxine Sodium (Levothyroxine Sodium), 1 TAB PO QAM Losartan Potassium & Hydrochlo (Hyzaar), 1 TAB PO QPM Multiple Vitamin (Multivitamin), 1 TAB PO NOON Omeprazole (Prilosec), 40 MG PO DAILY Polyethylene Glycol 3350 (Miralax), 17 GM PO PRN Verapamil Hcl (Verapamil Hcl Er), 1 TAB PO BID Scheduled PRN Armodafinil (Nuvigil), 0.5 TAB PO QAM PRN for PRN Darifenacin (Enablex), 15 MG PO DAILY PRN for URINARY FREQUENCY Ipratropium [place] (Nasal) (Ipratropium [place]), 2-3 SPRAY GELACIO DIRECTED PRN for PRN Oxycodone HCl (Oxycodone HCl), 5-10 MG PO Q4H PRN for Moderate - severe pain Rizatriptan Benzoate (Rizatriptan Benzoate), 10 MG PO UD PRN for RN Tramadol (Ultram), 50-100 MG PO Q6H PRN for RN Zolpidem Tartrate (Ambien), 10 MG PO HS PRN for Sleep Allergies Coded Allergies: Prochlorperazine (Verified Allergy, Intermediate, EMOTIONAL RX, 07/01/16) "OUT OF BODY EXPERIENCE, STRANGE FEELING" Aromatic Oils (Unverified Allergy, Unknown, SNEEZING HEADACHES, 07/01/16) Physical Exam Vital Signs Date Time Temp Pulse Resp B/P Pulse Ox O2 Delivery O2 Flow Rate FiO2 07/05/16 23:36 68 07/05/16 23:33 93 Nasal Cannula 3.0 07/05/16 23:33 82 Room Air 07/05/16 23:33 69 16 90/38 95 Nasal Cannula 3.0 07/05/16 21:35 36.8 78 18 93/57 98 Room Air Physical Exam GENERAL: Awake, alert, uncomfortable-appearing, in no distress HENT: Normocephalic, atraumatic. Oropharynx unremarkable. EYES: Normal conjunctiva. Sclera non-icteric. NECK: Supple. No nuchal rigidity. FROM. No JVD. RESPIRATORY: Clear to auscultation. CARDIAC: Regular rate, normal rhythm. Extremities warm and well perfused. Pulses equal. ABDOMEN: Soft, non-distended. No tenderness to palpation. No rebound or guarding. No masses. RECTAL: Deferred. MUSCULOSKELETAL: Chest examination reveals no tenderness. The back is symmetrical on inspection without obvious abnormality. Incision CDI. There is no CVA tenderness to palpation. No joint edema. LOWER EXTREMITIES: Calves are equal size bilaterally and non-tender. No edema. No discoloration. NEURO: Normal sensorium. No sensory or motor deficits noted except for subjective left leg tingling. no saddle anesthesia. reflexes symmetric. SKIN: No rash or jaundice noted. Medical Decision & Procedures Laboratory Results 07/05/16 23:14 Red Blood Count 3.71, Mean Corpuscular Volume 90.8, Mean Corpuscular Hemoglobin 30.7, Mean Corpuscular Hemoglobin Concent 33.8, Mean Platelet Volume 10.0, Neutrophils (%) (Auto) 77.2, Lymphocytes (%) (Auto) 12.3, Monocytes (%) (Auto) 10.0, Eosinophils (%) (Auto) 0.1, Basophils (%) (Auto) 0.1, Neutrophils # (Auto ) 11.08, Lymphocytes # (Auto) 1.77, Monocytes # (Auto) 1.44, Eosinophils # (Auto ) 0.01, Basophils # (Auto) 0.01 07/05/16 23:14 Test 07/05/16 23:14 07/06/16 00:00 White Blood Count 14.36 K/uL (4.8-10.8) Red Blood Count 3.71 M/uL (4.2-5.4) Hemoglobin 11.4 g/dL (12.0-16.0) Hematocrit 33.7 % (37-47) Mean Corpuscular Volume 90.8 fL (80-100) Mean Corpuscular Hemoglobin 30.7 pg (25-34) Mean Corpuscular Hemoglobin Concent 33.8 g/dl (32-36) Platelet Count 229 K/uL (130-400) Mean Platelet Volume 10.0 fL (7.4-10.4) Neutrophils (%) (Auto) 77.2 % Lymphocytes (%) (Auto) 12.3 % Monocytes (%) (Auto) 10.0 % Eosinophils (%) (Auto) 0.1 % Basophils (%) (Auto) 0.1 % Neutrophils # (Auto) 11.08 K/uL (1.4-6.5) Lymphocytes # (Auto) 1.77 K/uL (1.2-3.4) Monocytes # (Auto) 1.44 K/uL (0.11-0.59) Eosinophils # (Auto) 0.01 K/uL (0-0.5) Basophils # (Auto) 0.01 K/uL (0-0.2) RDW Standard Deviation 44.1 fL (36.4-46.3) RDW Coefficient of Variation 13.2 % (11.5-14.5) Immature Granulocyte % (Auto) 0.3 % Immature Granulocyte # (Auto) 0.05 K/uL (0.00-0.02) Anion Gap 4.0 mmol/L (3-11) Est Creatinine Clear Calc Drug Dose 63.3 ml/min Estimated GFR () 81.0 Estimated GFR (Non- 69.9 BUN/Creatinine Ratio 16.0 (10-20) Calcium Level 8.5 mg/dl (8.5-10.1) Total Bilirubin 0.8 mg/dl (0.2-1) Direct Bilirubin 0.2 mg/dl (0-0.2) Aspartate Amino Transf (AST/SGOT) 27 U/L (15-37) Alanine Aminotransferase (ALT/SGPT) 24 U/L (12-78) Alkaline Phosphatase 103 U/L (45-117) Total Protein 6.6 gm/dl (6.4-8.2) Albumin 3.0 gm/dl (3.4-5.0) Lipase 61 U/L (73-393) Urine Color YELLOW Urine Appearance CLEAR (CLEAR) Urine pH 7.0 (4.5-7.5) Urine Specific [place] 1.014 (1.000-1.030) Urine Protein NEG (NEG) Urine Glucose (UA) NEG (NEG) Urine Ketones TRACE (NEG) Urine Occult Blood NEG (NEG) Urine Nitrite NEG (NEG) Urine Bilirubin NEG (NEG) Urine Urobilinogen NEG (NEG) Urine Leukocyte Esterase NEG (NEG) Medications Administered Medications (Trade) Dose Ordered Sig/Tyson Route Start Time Stop Time Status Last Admin Dose Admin Ondansetron HCl (Zofran 8mg Iv) 8 mg NOW STAT IV 07/05/16 22:59 07/05/16 23:01 DC 07/05/16 23:23 8 MG Hydromorphone HCl (Dilaudid Inj) 1 mg Q15M PRN IV 07/05/16 23:00 07/06/16 02:28 DC 07/05/16 23:23 1 MG Ketorolac Tromethamine 10 mg 10 mg NOW STAT IV 07/06/16 00:41 07/06/16 00:42 DC 07/06/16 01:10 10 MG Sodium Chloride (Nss 1000ml) 1,000 ml @ 999 mls/hr Q1H1M STAT IV 07/06/16 00:41 07/06/16 01:41 DC 07/06/16 00:54 999 MLS/HR Medical Decision Triage Nursing notes reviewed. The patient's presentation and history were concerning for post-operative back pain. Etiologies such as post-op pain, bleeding, lumbago, sciatica, cauda equina, epidural abscess, osteomyelitis, fracture, aortic disease, metastatic disease, infection, renal colic, gastrointestinal, as well as others were entertained. Patient was evaluated. She had pain and some subjective tingling in the left leg. She was given Dilaudid. She had required some supplemental oxygen as she was very relaxed after this. Her blood pressure was mildly low and she was given normal saline. On reassessment she was doing better. The patient had no signs of wound infection on examination. She did have a slight leukocytosis. Urinalysis was unremarkable. The patient was having some difficulty urinating and this specimen was obtained by a straight cath. She was doing much better. A Joel was not placed initially. Nursing was notified if she cannot urinate Joel catheter would be necessary. She had no saddle anesthesia present. I did consult with her spine surgeon, Dr. Wright. He felt the patient would be best served by having her stay in the hospital. This was relayed to the patient and she was in agreement. The chart was completed utilizing [employer] Speech voice recognition software. Grammatical errors, random word insertions, pronoun errors, and incomplete sentences are an occasional consequence of this system due to software limitations, ambient noise, and hardware issues. Any formal questions or concerns about the content, text, or information contained within the body of this dictation should be directly addressed to the physician for clarification. Impression Primary Impression: Postoperative back pain Departure Information Dispostion Being Evaluated By Surgeon Referrals No Doctor, Assigned (PCP) Patient Instructions My [facility] [address]
[2016-07-06] MEDS: HYDROmorphone INJ 2 MG/ML SYR/VIAL IV PRN ×2 (03:07→07:09)
[2016-07-06] MEDS: SODIUM CHLORIDE 0.9% 1000ML 1,000 ML IV SCH ×3 (03:08→22:11)
[2016-07-06] MEDS ORDERED: IV FLUIDS COMPLETED PRN ×2 (04:00→13:45)
[2016-07-06] MEDS: DEXAMETHASONE INJ 8 MG in SYRINGE 0 ML IV SCH ×3 (04:02→20:55)
[2016-07-06] MEDS ORDERED: DEXAMETHASONE INJ 8 MG in SYRINGE 0 ML IV SCH (06:00)
[2016-07-06 07:33] VITALS: BP 119/78; PULSE 80; TEMP 36.8; O2SAT 97
[2016-07-06] MEDS: ONDANSETRON INJ 2 MG/ML 2 ML VIAL IV PRN (08:11)
[2016-07-06] MEDS: LORAZEPAM 1 MG TAB PO PRN (08:33)
[2016-07-06] MEDS ORDERED: RIZATRIPTAN BENZOATE 10 MG TAB PO PRN (10:15)
[2016-07-06] MEDS ORDERED: ACETAMINOPHEN 325 MG TAB PO PRN (10:15)
--- NOTE | 2016-07-06 10:48 | HISTORY & PHYSICAL EXAMINATION ---
DATE OF ADMISSION: 07/06/2016 CHIEF COMPLAINT: Back and left leg pain. HISTORY OF PRESENT ILLNESS: This is a 66-year-old female well known to me status post lumbar decompression and fusion on Friday. She had been discharged home a few days ago, done quite well, but had a decline in status over the past 24 hours including increasing back and left buttock and posterior thigh pain. She denies any precipitating trauma, fall or event. She denies any fevers or chills. Denies any loss of bowel or bladder function or any perianal numbness. PAST MEDICAL HISTORY: Significant for ovarian and cervical cancer, GERD, hypertension, hiatal hernia, hypercholesterolemia, hypothyroidism. SURGICAL HISTORY: Includes hysterectomy and above-mentioned lumbar decompression and fusion. ALLERGIES: SHE HAS ALLERGIES TO COMPAZINE. SOCIAL HISTORY: She is , lives alone. Has occasional alcoholic beverage on a rare basis. PHYSICAL EXAMINATION: VITAL SIGNS: Stable. Hematocrit 33.7. EXTREMITIES: She has excellent strength to testing bilateral lower extremities, plantar flexion, dorsiflexion and quadriceps. Sensory is symmetric and intact. Negative log roll. Incision is clean, dry and intact. No erythema or drainage. She does have tenderness to palpation of the left sciatic notch. ASSESSMENT: Status post lumbar decompression and fusion. PLAN: At this time, we will give her 24 hours of rest with IV Decadron and pain medications. We will obtain x-rays of lumbar spine today, assess her instrumentation. We will assess her on Friday. Pending her progress, we may initiate a course of physical therapy. If she does fail to improve over the next 48-72 hours, we may have to consider further imaging. CHRISTOFER
[2016-07-06] MEDS: HYDROmorphone INJ 1 MG/ML SYR IV PRN ×3 (11:37→20:56)
[2016-07-06] MEDS: GABAPENTIN 300 MG CAP PO SCH ×2 (13:10→21:08)
[2016-07-06] MEDS: TRAMADOL HCL 50 MG TAB PO PRN ×2 (13:14→23:58)
--- NOTE | 2016-07-06 13:31 | DIAGNOSTIC IMAGING REPORT ---
LUMBAR SPINE 5 VIEWS CLINICAL HISTORY: Low back pain. Recent surgery. FINDINGS: Five views of the lumbar spine are compared to study dated 04/25/2016. The skeletal structures are osteopenic. There is no radiographic evidence of fracture or malalignment. There is evidence of discectomy at L4-L5 with laminectomy and posterior fusion with interpositioned bone graft from L3-L5. Interpedicular screws are present at all levels. The orthopedic hardware appears intact. Vertebral body height is maintained throughout the lumbar spine. There is 5 mm of anterolisthesis at L4-L5. Alignment is otherwise preserved. Small anterior osteophytes are seen throughout. The transverse processes appear intact. Mild degenerative disc space narrowing is seen throughout the lumbar spine. The bony pelvis is intact as imaged. Mild sclerotic change is noted in the sacroiliac joints. There is a nonobstructed abdominal bowel gas pattern noting moderate colonic fecal retention. Phleboliths are noted in the pelvis. There is mild atherosclerotic calcification of the abdominal aorta. IMPRESSION: 1. No acute bony abnormality is seen involving the lumbosacral spine. 2. There are postoperative changes from L3-L5 spinal fusion, new from 04/25/2016. The orthopedic hardware appears intact. 3. Osteopenia and spondylotic change as above. Dictated: 07/06/2016 11:19 AM Transcribed: 07/06/2016 1:31 PM Ernestina Electronically signed by: Tung Ballesteros M.D. 07/06/2016 1:35 PM Dictated Date/Time: 07/06/2016 11:19 AM
[2016-07-06] MEDS: OXYCODONE HCL IR 5 MG TAB (IMMEDIATE RELEASE) PO PRN ×2 (17:27→22:12)
[2016-07-06 21:00] VITALS: BP 139/80
[2016-07-06] MEDS ORDERED: POLYETHYLENE (MIRALAX) 17 GM PACK PO SCH (21:00)
[2016-07-06] MEDS: DOCUSATE SODIUM 100 MG CAP PO SCH (21:04)
[2016-07-06] MEDS: ATORVASTATIN 20 MG TAB PO SCH (21:04)
[2016-07-06] MEDS: VERAPAMIL HCL 180 MG TABCR PO SCH (21:07)
[2016-07-06 23:13] VITALS: BP 128/77; PULSE 99; TEMP 37; O2SAT 96
[2016-07-07] MEDS: OXYCODONE HCL IR 5 MG TAB (IMMEDIATE RELEASE) PO PRN ×5 (03:18→22:31)
[2016-07-07] MEDS: DEXAMETHASONE INJ 8 MG in SYRINGE 0 ML IV SCH ×3 (03:26→21:13)
[2016-07-07] MEDS: LEVOTHYROXINE 25 MCG TAB PO SCH (05:36)
[2016-07-07 07:00] VITALS: BP 113/65; PULSE 76; TEMP 36.8; O2SAT 95
[2016-07-07] MEDS: SODIUM CHLORIDE 0.9% 1000ML 1,000 ML IV SCH ×2 (07:38→18:27)
[2016-07-07] MEDS: VERAPAMIL HCL 180 MG TABCR PO SCH ×2 (08:46→21:18)
[2016-07-07] MEDS: DOCUSATE SODIUM 100 MG CAP PO SCH ×2 (08:46→21:19)
[2016-07-07] MEDS: GABAPENTIN 300 MG CAP PO SCH ×3 (08:47→21:19)
[2016-07-07] MEDS: HYDROmorphone INJ 1 MG/ML SYR IV PRN (09:37)
--- NOTE | 2016-07-07 11:36 | PROGRESS NOTE ---
DATE: 07/07/2016 Today, she is markedly improved. Leg symptoms diminished substantially. Vital signs stable. T-max 36.8. Bowels working well, urinating without difficulty. PHYSICAL EXAMINATION: She has excellent strength to testing. Does appear much more comfortable. ASSESSMENT: Status post lumbar decompression and fusion. PLAN: At this time, we will begin increasing her activity and hopefully ambulating the halls today. Reassess her tomorrow. Of note, her x-rays are normal. No evidence of migration of the hardware.
[2016-07-07 15:45] VITALS: BP 149/81; PULSE 85; TEMP 36.5; O2SAT 96
[2016-07-07] MEDS: ONDANSETRON INJ 2 MG/ML 2 ML VIAL IV PRN (19:14)
[2016-07-07 21:11] VITALS: BP 163/69; PULSE 84
[2016-07-07] MEDS: ATORVASTATIN 20 MG TAB PO SCH (21:19)
[2016-07-07 22:34] VITALS: BP 161/88
[2016-07-07 23:28] VITALS: BP 148/79; PULSE 75; TEMP 36.9; O2SAT 95
[2016-07-08] MEDS: ZOLPIDEM TARTRATE 10 MG TAB PO PRN (00:07)
[2016-07-08] MEDS: SODIUM CHLORIDE 0.9% 1000ML 1,000 ML IV SCH ×2 (04:24→14:31)
[2016-07-08] MEDS: DEXAMETHASONE INJ 8 MG in SYRINGE 0 ML IV SCH ×3 (04:25→20:39)
[2016-07-08] MEDS: LEVOTHYROXINE 25 MCG TAB PO SCH (06:12)
[2016-07-08] MEDS: HYDROmorphone INJ 1 MG/ML SYR IV PRN (07:17)
[2016-07-08 07:54] VITALS: BP 148/78; PULSE 70; TEMP 36.3; O2SAT 95
[2016-07-08] MEDS: VERAPAMIL HCL 180 MG TABCR PO SCH ×2 (08:55→20:38)
[2016-07-08] MEDS: GABAPENTIN 300 MG CAP PO SCH ×3 (08:55→20:38)
[2016-07-08] MEDS: DOCUSATE SODIUM 100 MG CAP PO SCH ×2 (08:55→20:38)
[2016-07-08 10:20] VITALS: O2SAT 95
[2016-07-08] MEDS: ONDANSETRON INJ 2 MG/ML 2 ML VIAL IV PRN (13:42)
[2016-07-08] MEDS: TRAMADOL HCL 50 MG TAB PO PRN ×2 (13:42→20:38)
[2016-07-08] MEDS: OXYCODONE HCL IR 5 MG TAB (IMMEDIATE RELEASE) PO PRN (15:24)
[2016-07-08] MEDS ORDERED: HYDROmorphone HCL 2 MG TAB PO PRN (16:00)
[2016-07-08] MEDS ORDERED: CONVERT TO SALINE LOCK ONE (16:00)
--- NOTE | 2016-07-08 16:22 | PROGRESS NOTE ---
DATE: 07/08/2016 SUBJECTIVE: Her leg pain is improving dramatically, back pain controlled. Vital signs stable. T-max 36.3. Bowels are working well. On exam, she is sitting up in a chair at bedside. Has good strength to testing. Does appear much more comfortable. ASSESSMENT: Status post lumbar decompression and fusion. PLAN: At this time, we will change her from oxycodone to oral Dilaudid as she struggles with nausea secondary to oxycodone. She may also take tramadol. We will wean her off of the Decadron and also place her on saline lock. Continue activity as tolerated, walking in the halls. We will assess her progress tomorrow, hopefully discharge home Friday or Friday.
[2016-07-08 16:35] VITALS: BP 153/92; PULSE 71; TEMP 36.3; O2SAT 93
[2016-07-08] MEDS: KETOROLAC TROMETHAMINE 15 MG/ML VIAL IV. PRN (16:48)
[2016-07-08] MEDS: LORAZEPAM 1 MG TAB PO PRN (20:37)
[2016-07-08] MEDS: ATORVASTATIN 20 MG TAB PO SCH (20:38)
[2016-07-08 23:25] VITALS: BP 151/76; PULSE 72; TEMP 36.7; O2SAT 96
[2016-07-09] MEDS: KETOROLAC TROMETHAMINE 15 MG/ML VIAL IV. PRN ×2 (04:01→17:40)
[2016-07-09] MEDS: LEVOTHYROXINE 25 MCG TAB PO SCH (05:37)
[2016-07-09] MEDS: TRAMADOL HCL 50 MG TAB PO PRN ×3 (07:42→22:54)
[2016-07-09 08:19] VITALS: BP 163/85; PULSE 72; TEMP 36.4; O2SAT 97
[2016-07-09] MEDS: DOCUSATE SODIUM 100 MG CAP PO SCH ×2 (08:44→20:58)
[2016-07-09] MEDS: VERAPAMIL HCL 180 MG TABCR PO SCH ×2 (08:44→20:56)
[2016-07-09] MEDS: GABAPENTIN 300 MG CAP PO SCH ×3 (08:44→20:58)
[2016-07-09] MEDS: DEXAMETHASONE INJ 8 MG in SYRINGE 0 ML IV SCH ×2 (08:44→22:41)
[2016-07-09] MEDS ORDERED: NURSING VERBAL MED ORDER ONE (15:00)
[2016-07-09] MEDS ORDERED: PANTOprazole SOD 40 MG TAB PO ONE (15:30)
[2016-07-09 16:49] VITALS: BP 159/79; PULSE 76; TEMP 36.4; O2SAT 97
[2016-07-09] MEDS: LORAZEPAM 1 MG TAB PO PRN (17:31)
--- NOTE | 2016-07-09 17:37 | PROGRESS NOTE ---
DATE: 07/09/2016 SUBJECTIVE: Overall, back and leg symptoms are steadily improving. She is becoming more independent ambulating the halls. She is not complaining of nausea after transitioning from oxycodone to oral Dilaudid. PHYSICAL EXAMINATION: She is sitting in bed, has good strength to testing, and appears comfortable. ASSESSMENT: Status post lumbar decompression and fusion. PLAN: At this time, as long as she continues to improve, I anticipate possible home tomorrow with home health.
[2016-07-09] MEDS: ATORVASTATIN 20 MG TAB PO SCH (20:58)
[2016-07-09 21:00] VITALS: BP 168/89; PULSE 54
[2016-07-09] MEDS: ZOLPIDEM TARTRATE 10 MG TAB PO PRN (23:36)
[2016-07-09 23:44] VITALS: BP 152/85; PULSE 79; TEMP 36.5; O2SAT 96
[2016-07-10] MEDS: LEVOTHYROXINE 25 MCG TAB PO SCH (04:45)
[2016-07-10] MEDS ORDERED: DLD2 PO (07:20)
[2016-07-10] MEDS ORDERED: ATV1 PO (07:20)
--- NOTE | 2016-07-10 07:20 | Discharge Instructions ---
Discharge Instructions Date of Service Jul 10, 2016. Admission Reason for Admission: Back Pain Discharge Discharge Diagnosis / Problem: stenosis Discharge Goals Goal(s): Improve function Activity Recommendations Activity Limitations: per Instructions/Follow-up section . Instructions / Follow-Up Instructions / Follow-Up ACTIVITY RECOMMENDATIONS: SELF CARE INSTRUCTIONS AFTER THORACIC/LUMBAR FUSIONS 1. You may walk to your tolerance. It is good exercise for your legs and back. Expect some back and intermittent leg aches and pains. 2. You may perform "counter-top" level activities (make a sandwich, denise with a project, etc.). 3. No bending or lifting of more than 10 pounds or back twisting of any nature (roll like a log when turning in bed). 4. You may ride in a car for 20-30 minutes at a time. No driving until after your first visit with your doctor. 5. Frequent changes of position and restricting sitting to 30 minutes at a time will help limit the amount of back spasms and stiffness you may experience. 6. You may discontinue the use of ambulatory aids (cane, crutches, etc.) once your strength and confidence allow. 7. You may vice president investor relations the shower and let water strike your incision when you arrive home at least once daily. Do not take a tub bath, sit in a hot tub or go into a swimming pool until after your first recheck in the office. SPECIAL CARE INSTRUCTIONS: VERY IMPORTANT TO READ AND REVIEW A. Your surgical incision has been closed with a cosmetic suture under the skin that will dissolve in about 6 weeks. In 14 days, you can use a pair of clean scissors and cut the suture that is left outside of the skin at the ends of your incision. 1. The small skin tapes can be removed 7 days after surgery if they have not fallen off by that point. 2. You may keep the wound open to air as much as possible to promote healing after post-op day number 5 unless told otherwise by your doctor. 3. If you think the wound looks like it is becoming infected (redness or worsening drainage) and/or you are experiencing fever, chill or worsening back pain and muscle spasms, contact the office so that we may evaluate you as soon as possible. B. Complications are uncommon, but please contact us if you have any signs or symptoms of: 1. wound infection (fever higher than 102.5 degrees F, redness, separation of wound, drainage, or increasing pain from the incision) 2. blood clots in legs (pain, swelling, redness and warmth in legs) 3. urinary tract infection (fever higher than 102.5 degrees F, burning upon urination or increased frequency of urination) 4. nerve problems (inability to walk on your toes or heels, numbness, loss of bowel or bladder control) 5. any other symptoms that concern you C. Please call the office at if you have any concerns or questions about your operation or recovery. D. No smoking! Smoking drastically decreases the chance of a solid fusion. E. Do not take any anti-inflammatory medications (Indocin, Advil, Motrin, Aspirin, Naprosyn, etc.) as these may inhibit the chance of a solid fusion. Tylenol is okay to take for pain. MANAGING PAIN AFTER SPINAL SURGERY 1. Narcotic medication is intended for short-term use and will be provided for surgical pain. Surgical pain usually lasts for a period of 4-6 weeks. Narcotic medication includes Percocet, Vicodin, Darvocet, Tylenol #3 or Lortab. 2. Longer-term pain is more appropriately treated with non-narcotic medication such as Tylenol ES. 3. Muscle spasm is not appropriately treated with narcotics. Muscle relaxers such as Soma, Flexeril or Skelaxin can be used along with Tylenol ES. 4. Remember that we all live with some "aches and pains". This is not unusual or uncommon after an injury or as we get older. a. Back pain is expected and may include muscle spasms for 4 to 6 weeks after surgery. The pain should gradually improve. If the pain worsens for no apparent reason, please contact the office. b. Intermittent leg pain may also be experienced and should not be concerned about unless it worsens for no apparent reason. If so, please contact the office. 5. We will provide appropriate medication within the normal guidelines of their prescribed use. We will also be very cautious and aware of potential abuse and extended duration of patients' medication needs. a. Pain medications are for your comfort and to assist with sleep and rest so that the tissue can heal. They are not provided in order to return to normal activity and should not be used through the day. To do so or worsening pain at night can result from ongoing tissue damage and development of tolerance to the prescribed medicine. 6. Please allow 2-3 days to process refills. Prescriptions will not be mailed but must be picked up at the office. FOLLOW UP VISIT: Keep your scheduled follow-up appointment. Any questions, please call the office at . Current Hospital Diet Patient's current hospital diet: Regular Diet Discharge Diet Recommended Diet: Regular Diet Pending Studies Studies pending at discharge: no Medical Emergencies . Who to Call and When: Medical Emergencies: If at any time you feel your situation is an emergency, please call 911 immediately. . Non-Emergent Contact Non-Emergency issues call your: Primary Care Provider . "Provider Documentation" section prepared by Troy Wright. VTE Core Measure Inpt VTE Proph given/why not?: Juancho Valdez, SCD's
[2016-07-10 07:46] VITALS: BP 163/103; PULSE 69; TEMP 36.4; O2SAT 97
[2016-07-10] MEDS: KETOROLAC TROMETHAMINE 15 MG/ML VIAL IV. PRN (08:29)
[2016-07-10] MEDS: DEXAMETHASONE INJ 8 MG in SYRINGE 0 ML IV SCH (08:29)
[2016-07-10] MEDS: DOCUSATE SODIUM 100 MG CAP PO SCH (08:29)
[2016-07-10] MEDS: VERAPAMIL HCL 180 MG TABCR PO SCH (08:30)
[2016-07-10] MEDS: GABAPENTIN 300 MG CAP PO SCH (08:30)
[2016-07-10 08:32] VITALS: BP 159/73; PULSE 66
[2016-07-10] MEDS ORDERED: PANTOprazole SOD 40 MG TAB PO SCH (09:00)
[2016-07-10] MEDS: TRAMADOL HCL 50 MG TAB PO PRN (10:11)
[2016-07-10 10:19] VITALS: BP 159/73; PULSE 66; TEMP 36.4; O2SAT 97
--- NOTE | 2016-07-10 12:15 | DISCHARGE SUMMARY ---
PRINCIPAL DIAGNOSIS: Status post lumbar decompression and fusion with postop back pain. HOSPITAL COURSE FOLLOWS: On July 06, the patient was admitted with back and left leg pain. She was held at bedrest for a day. With this, we began IV Decadron and pain control. We were able to mobilize her Friday afternoon and initiated more advanced therapy throughout the week. She progressed appropriately. Bowels were working well. Pain well controlled. Subsequently discharged home on July 10. Discharge orders and instructions found on the chart for further review.
== END 2016-07-10 11:51 | disposition home health service (06) ==
LOC: ENRESERVTM → ENRESERVDT → C.EDB 21:31 → C.3E 07-06 01:00
PROVIDERS: ADMIT Orthopaedic Surgery Orthopaedic Surgery of the Spine; ATTEND Orthopaedic Surgery Orthopaedic Surgery of the Spine
DX: G89.18 Other acute postprocedural pain (principal); M54.5 Low back pain; M79.605 Pain in left leg; Z98.1 Arthrodesis status; Z85.41 Personal history of malignant neoplasm of cervix uteri; Z85.43 Personal history of malignant neoplasm of ovary; K21.9 Gastro-esophageal reflux disease without esophagitis; I10 Essential (primary) hypertension; E78.00 Pure hypercholesterolemia, unspecified; E03.9 Hypothyroidism, unspecified

== ENCOUNTER → 2017-02-20 | Outpatient (CLI) | payer OTHER ==
[~2017-02-20] MED LIST changes: +ATV1 PO; -CALC-51 PO; +CALCCHW57 PO; +HYDR2TAB3 PO; -OMEP40CA PO; +OMEP40CA41 PO
--- NOTE | 2017-02-20 10:51 | DIAGNOSTIC IMAGING REPORT ---
CHEST 2 VIEWS ROUTINE CLINICAL HISTORY: COUGH dyspnea COMPARISON STUDY: 06/05/2016 FINDINGS: The bones soft tissues and hemidiaphragms are normal. The cardiomediastinal silhouette is normal. The lungs are clear. The pulmonary vasculature is normal. Minimal right infrahilar atelectatic change IMPRESSION: Minimal right infrahilar atelectatic change. Otherwise negative study. The above report was generated using voice recognition software. It may contain grammatical, syntax or spelling errors. Electronically signed by: Hari Li M.D. 02/20/2017 10:50 AM Dictated Date/Time: 02/20/2017 10:48 AM
== END | disposition home or self-care (01) ==
LOC: C.RADBC 10:16
PROVIDERS: ATTEND Nurse Practitioner Family
DX: J98.11 Atelectasis (principal); R05 Cough

== ENCOUNTER → 2017-02-20 | Outpatient (CLI) | payer OTHER | END | disposition home or self-care (01) | LOC: C.LABSPEC 11:06 | PROVIDERS: ATTEND Nurse Practitioner Family | DX: R05 Cough (principal) ==

== ENCOUNTER → 2017-03-21 | Outpatient (CLI) | payer OTHER ==
[2017-03-21 11:14] LABS: BASO % 0.2 %; BASO ABS # 0.01 K/uL (0-0.2); COMPLETE YES; EOS % 2.6 %; LYMPH % 44.5 %; LYMPH ABS # 2.23 K/uL (1.2-3.4); MEAN CELL VOLUME 90.9 fL (80-100); MEAN CORPUSCULAR HEMOGLOBIN 30.5 pg (25-34); MEAN CORPUSCULAR HGB CONC 33.6 g/dl (32-36); MEAN PLATELET VOLUME 10.9 fL (7.4-10.4); MONO % 8.2 %; NEUT % 44.5 %; PLATELET COUNT 250 K/uL (130-400); RED BLOOD COUNT 4.95 M/uL (4.2-5.4); WHITE BLOOD COUNT 5.01 K/uL (4.8-10.8)
[2017-03-21 11:21] LABS: ALT/SGPT 30 U/L (12-78); AST/SGOT 19 U/L (15-37); BLOOD UREA NITROGEN 19 mg/dl (7-18); BUN/CREATININE RATIO 25.2 (10-20); CALCIUM 8.6 mg/dl (8.5-10.1); CARBON DIOXIDE 32 mmol/L (21-32); CHLORIDE 103 mmol/L (98-107); CREATININE 0.74 mg/dl (0.60-1.20); GLUCOSE 79 mg/dl (70-99); MAGNESIUM 2.1 mg/dl (1.8-2.4); POTASSIUM 3.6 mmol/L (3.5-5.1); SODIUM 138 mmol/L (136-145)
[2017-03-21 11:30] LABS: ALB/GLOB RATIO 1.2 (0.9-2); ALKALINE PHOSPHATASE 141 U/L (45-117); CHOLESTEROL 180 mg/dl (0-200); CHOLESTEROL/HDL RATIO 2.5; HDL CHOLESTEROL 72 mg/dl; LDL CHOLESTEROL CALCULATED 70 mg/dl; TRIGLYCERIDES 190 mg/dl (0-150); VERY LOW DENSITY LIPOPROT CALC 38 mg/dl
== END | disposition home or self-care (01) ==
LOC: C.LABBC 08:13
PROVIDERS: ATTEND Nurse Practitioner Family
DX: E78.00 Pure hypercholesterolemia, unspecified (principal); M85.80 Other specified disorders of bone density and structure, unspecified site; E55.9 Vitamin D deficiency, unspecified; E03.9 Hypothyroidism, unspecified

== ENCOUNTER → 2017-04-24 | Outpatient (CLI) | payer OTHER | END | disposition home or self-care (01) | LOC: C.LABBC 13:36 | PROVIDERS: ATTEND Psychiatry & Neurology Neurology | DX: R41.3 Other amnesia (principal) ==

== ENCOUNTER → 2017-05-01 | Outpatient (CLI) | payer OTHER ==
--- NOTE | 2017-05-01 09:32 | DIAGNOSTIC IMAGING REPORT ---
BRAIN WITHOUT CONTRAST HISTORY: Mental status change R41.3 Memory [id number] Worsening [id number] TECHNIQUE: Multiplanar multisequence MRI of the brain was performed without the use of contrast. COMPARISON STUDY: None. FINDINGS: There are no areas of restricted diffusion to suggest acute infarction. The midline structures are intact. The paranasal sinuses are clear. The mastoid air cells are clear. The ventricles and sulci are within normal limits for age. There is no mass, hematoma, midline shift. The major vascular flow-voids at the skull base are well maintained. Mild chronic small vessel change throughout both cerebral hemispheres. Minimal atrophy unremarkable for age. IMPRESSION: No acute intracranial abnormality. Chronic and age-related change is noted. No acute process. The above report was generated using voice recognition software. It may contain grammatical, syntax or spelling errors. Electronically signed by: Hari Li M.D. 05/01/2017 9:31 AM Dictated Date/Time: 05/01/2017 9:29 AM
== END | disposition home or self-care (01) ==
LOC: C.MRIBC 08:44
PROVIDERS: ATTEND Psychiatry & Neurology Neurology
DX: R41.3 Other amnesia (principal); R51 Headache